=== PATIENT | male | born 1945 | race Two or more races ===

== ENCOUNTER 2016-07-27 10:43 | Emergency (ER) | payer OTHER ==
[~2016-07-27] VITALS: Ht 175.3 cm; Wt 83.9 kg
[2016-07-27 11:04] VITALS: BP 142/77
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
[2016-07-27] MEDS ORDERED: IBUPROFEN 600 MG TABLET. PO ONE (11:30)
--- NOTE | 2016-07-27 11:44 | RAD ---
EXAM: Pelvis and left hip, 2 views. HISTORY: Pain. COMPARISON: None. FINDINGS: A frontal view of the pelvis and frontal and frog-leg views of the left hip are obtained. There is no fracture, dislocation or subluxation. There is degenerative endplate remodeling with disc space narrowing and facet arthropathy at the lumbosacral junction. IMPRESSION: No acute osseous finding.
== END 2016-07-27 11:58 | disposition home or self-care (01) ==
LOC: ER 10:43
DX: S70.02XA Contusion of left hip, initial encounter (principal); I10 Essential (primary) hypertension; N40.0 Benign prostatic hyperplasia without lower urinary tract symptoms; W51.XXXA Accidental striking against or bumped into by another person, initial encounter; Y93.89 Activity, other specified; Y92.89 Other specified places as the place of occurrence of the external cause; Y99.8 Other external cause status
CPT/HCPCS: 73502; 99284

== ENCOUNTER → 2017-04-14 | Outpatient (CLI) | payer BC ==
[2017-04-15] MEDS: REGADENOSON 0.4 MG/5 ML DISP.SYRIN. IV ×2 (09:30)
== END | disposition home or self-care (01) ==
LOC: ECHO 08:06
DX: I87.2 Venous insufficiency (chronic) (peripheral) (principal); M71.21 Synovial cyst of popliteal space [Baker], right knee; I10 Essential (primary) hypertension; R06.09 Other forms of dyspnea
CPT/HCPCS: 78452; 93017; 93306; 93970; 96374; 96375; 96376; A9500; J2785

== ENCOUNTER 2018-03-06 11:57 | Emergency (ER) | payer BC, OTHER ==
[~2018-03-06] VITALS: Ht 175.3 cm; Wt 83.9 kg
[2018-03-06 12:19] VITALS: BP 136/72
--- NOTE | 2018-03-06 14:05 | RAD ---
SHOULDER 2+V RIGHT, LUMBAR SPINE 2-3V, KNEE BILAT 3V History: RIGHT SHOULDER PAIN AFTER FALL X1 DAY AGO. UNABLE TO EXTERNALLY ROTATE. Shoulder pain. Comparison: None are available Three-view right knee Severe narrowing of the medial joint compartment. Degenerative spurring at all 3 joints. No evidence of an acute fracture. No dislocation. No significant soft tissue abnormality 3 view left knee Moderate narrowing of the left medial joint compartment. No evidence of an acute fracture or dislocation. There is a small bone density adjacent to the tibial spine on the oblique view compatible with an osteophyte. No significant soft tissue abnormality. IMPRESSION: Primary osteoarthritis. No acute findings at either knee. 3 view right shoulder No evidence of acute fracture. No bone destruction. No evidence of dislocation. IMPRESSION: No acute fracture or dislocation. Electronically signed by: Abdias Baker MD (03/06/2018 2:01 PM) [facility]
--- NOTE | 2018-03-06 14:28 | PHYS DOC ---
Past Medical History Past Medical History: Hypertension, Other Additional Past Medical Histor: BPH Past Surgical History: Other Additional Past Surgical Histo: LEFT KNEE MENISCUS REPAIR Alcohol Use: Rarely Drug Use: None Adult General Chief Complaint Chief Complaint: MECHANICAL FALL HPI HPI Patient is a 72 year old male who presents with complaints of lumbar pain, right shoulder pain and bilateral knee pain after he fell yesterday while at work. He states that he was walking on [place] that was frozen and slippery. He states that he fell onto his knees and shoulder. He states it pulled in his lower back. He denies loss of consciousness or other injury. Denies spontaneous loss of bowel or bladder, saddle numbness or foot drop. Review of Systems Review of Systems Constitutional: Denies fever or chills [] Respiratory: Denies cough or shortness of breath [] Cardiovascular: No additional information not addressed in HPI [] GI: Denies abdominal pain, nausea, vomiting, bloody stools or diarrhea [] : Denies dysuria or hematuria [] Musculoskeletal: See history of present illness Integument: Denies rash or skin lesions [] Neurologic: Denies headache, focal weakness or sensory changes [] Endocrine: Denies polyuria or polydipsia [] All other systems were reviewed and found to be within normal limits, except as documented in this note. Allergies Allergies Allergies Coded Allergies Type Severity Reaction Last Updated Verified No Known Drug Allergies 07/27/16 No Physical Exam Physical Exam Constitutional: Well developed, well nourished, no acute distress, non-toxic appearance. [] Neck: Normal range of motion, no tenderness, supple, no stridor. [] Cardiovascular:Heart rate regular rhythm, no murmur [] Lungs & Thorax: Bilateral breath sounds clear to auscultation [] Abdomen: Bowel sounds normal, soft, no tenderness, no masses, no pulsatile masses. [] Skin: Warm, dry, no erythema, no rash. [] Back: Lumbar tenderness with no gross deformity or step-offs noted, no CVA tenderness. [] Extremities: Tenderness to right shoulder with no gross deformity noted, no cyanosis, no clubbing, ROM decreased due to pain, no edema. Tenderness to the lateral knees with no gross deformities, range of motion intact [] Neurologic: Alert and oriented X 3, normal motor function, normal sensory function, no focal deficits noted. [] Psychologic: Affect normal, judgement normal, mood normal. [] Current Patient Data Vital Signs Vital Signs Date Time Temp Pulse Resp B/P (MAP) Pulse Ox O2 Delivery O2 Flow Rate FiO2 03/06/18 12:19 98.9 72 18 136/72 (93) 98 Room Air 98.9 EKG EKG [] Radiology/Procedures Radiology/Procedures []PATIENT: JAVON HINESOUNT: [id number]#: [id number] : 1945 LOCATION: ER AGE: 72 SEX: M EXAM STATUS: REG ER ORD. PHYSICIAN: DAHIANA CAGE APRN REASON: fall yesterday PROCEDURE: LUMBAR SPINE 2-3V ADDENDUM Three-view lumbar spine Degenerative spondylosis. Vertebral body height is maintained. No significant subluxation. Marginal spurring is identified. Dense aortic calcification is identified. Moderate retained stool in the colon. Pelvic calcifications, compatible with phleboliths. IMPRESSION: Degenerative spondylosis. No evidence of an acute fracture or subluxation. Electronically signed by: Abdias Baker MD (03/06/2018 2:19 PM) [facility] DICTATED AND SIGNED BY: ABDIAS BAKER MD DATE: 03/06/18 1413 CC: DAHIAAN CAGE APRN; SHANDA DANG MD ~ SHOULDER 2+V RIGHT, LUMBAR SPINE 2-3V, KNEE BILAT 3V History: RIGHT SHOULDER PAIN AFTER FALL X1 DAY AGO. UNABLE TO EXTERNALLY ROTATE. Shoulder pain. Comparison: None are available Three-view right knee Severe narrowing of the medial joint compartment. Degenerative spurring at all 3 joints. No evidence of an acute fracture. No dislocation. No significant soft tissue abnormality 3 view left knee Moderate narrowing of the left medial joint compartment. No evidence of an acute fracture or dislocation. There is a small bone density adjacent to the tibial spine on the oblique view compatible with an osteophyte. No significant soft tissue abnormality. IMPRESSION: Primary osteoarthritis. No acute findings at either knee. 3 view right shoulder No evidence of acute fracture. No bone destruction. No evidence of dislocation. IMPRESSION: No acute fracture or dislocation. Electronically signed by: Abdias Baker MD (03/06/2018 2:01 PM) [facility] DICTATED and SIGNED BY: ABDIAS BAKER MD DATE: 03/06/18 1357 Course & Med Decision Making Course & Med Decision Making Pertinent Labs and Imaging studies reviewed. (See chart for details) [] Dragon Disclaimer Dragon Disclaimer This electronic medical record was generated, in whole or in part, using a voice recognition dictation system. Departure Departure Impression: Primary Impression: Muscle strain Disposition: HOME, SELF-CARE Condition: STABLE Referrals: SHANDA DANG MD (PCP) Patient Instructions: Muscle Strain Additional Instructions: You may take ibuprofen or Tylenol for pain. Follow-up with your primary care provider for recheck in one week if not improving or return to the emergency department if worsening. DAHIANA CAGE BOX STACKER Mar 06, 2018 14:28
== END 2018-03-06 14:31 | disposition home or self-care (01) ==
LOC: ER 11:57
DX: S46.911A Strain of unspecified muscle, fascia and tendon at shoulder and upper arm level, right arm, initial encounter (principal); M47.816 Spondylosis without myelopathy or radiculopathy, lumbar region; M17.0 Bilateral primary osteoarthritis of knee; I10 Essential (primary) hypertension; Z98.890 Other specified postprocedural states; W00.0XXA Fall on same level due to ice and snow, initial encounter; Y93.89 Activity, other specified; Y92.69 Other specified industrial and construction area as the place of occurrence of the external cause; Y99.0 Civilian activity done for income or pay
CPT/HCPCS: 72100; 73030; 73562; 99284-25